=== PATIENT | male | born 1990 | race Caucasian/White ===

== ENCOUNTER → 2017-09-24 | Outpatient (CLI) | payer SELFPAY ==
[2017-09-26 02:11] LABS: CHLAMYDIA TRACHOMATIS, NAA Negative (Negative); NEISSERIA GONORRHOEAE, NAA Negative (Negative)
== END ==
LOC: LAB 11:22 → LAB SHORT 11:22
PROVIDERS: Physician Assistant
DX: N34.1 Nonspecific urethritis (principal)
CPT/HCPCS: 87086; 87491; 87591

== ENCOUNTER 2019-04-03 18:41 | Emergency (ER) | payer OTHER ==
[~2019-04-03] VITALS: Ht 165.1 cm; Wt 68.0 kg
[2019-04-03] MEDS ORDERED: Keflex500 MG PO (23:10)
== END 2019-04-03 23:19 | disposition home or self-care (01) ==
LOC: ER 18:41
DX: S61.211A Laceration without foreign body of left index finger without damage to nail, initial encounter (principal); F17.210 Nicotine dependence, cigarettes, uncomplicated; W27.0XXA Contact with workbench tool, initial encounter
CPT/HCPCS: 12001; 73140; 99283-25; A9270-GY